=== PATIENT | female | born 1945 | race Caucasian/White ===

== ENCOUNTER → 2020-07-27 | Outpatient (CLI) | payer MEDICARE | LOC: COL.RAD 13:31 | DX: Z01.812 Encounter for preprocedural laboratory examination (principal); S09.90XA Unspecified injury of head, initial encounter; G35 Multiple sclerosis; Z87.828 Personal history of other (healed) physical injury and trauma | CPT/HCPCS: A9585 ==

== ENCOUNTER → 2020-07-27 | Outpatient (CLI) | payer MEDICARE | LOC: COL.RAD 07-14 14:00 | DX: S06.9X0D Unspecified intracranial injury without loss of consciousness, subsequent encounter (principal); R41.3 Other amnesia; Z87.828 Personal history of other (healed) physical injury and trauma ==

== ENCOUNTER 2022-01-29 16:04 | Emergency (ER) | payer MEDICARE, BC ==
[~2022-01-29] VITALS: Ht 165.1 cm; Wt 70.5 kg
[2022-01-29 16:05] VITALS: PULSE 108; TEMP 97.5
[2022-01-29 17:54] LABS: BASO # 0.1 K/mm3 (0.0-0.2); BASO % 1.7 % (0.0-2.0); EOS # 0.1 K/mm3 (0.0-0.7); EOS % 2.1 % (0.0-4.0); GRAN # 2.9 K/mm3 (1.4-6.5); GRAN % 55.3 % (42.2-75.2); HEMATOCRIT 37.6 % (37.0-47.0); HEMOGLOBIN 12.3 g/dl (12.5-16.0); LYMPH # 1.6 K/mm3 (1.2-3.4); LYMPH % 30.8 % (20.0-51.0); MEAN CELL VOLUME 93 fl (80.0-100.0); MEAN CORPUSCULAR HEMOGLOBIN 30 pg (27-31); MEAN CORPUSCULAR HGB CONC 33 g/dl (33.0-37.0); MEAN PLATELET VOLUME 10.4 fl (7.4-10.4); MONO # 0.5 K/mm3 (0.1-0.6); MONO % 9.9 % (1.7-9.3); PLATELET COUNT 248 K/mm3 (130-400); RED BLOOD COUNT 4.06 M/mm3 (4.10-5.30); REDCELL DISTRIBUTION WIDTH-CV 13.9 % (11.5-14.5)
[2022-01-29 18:18] LABS: BILIRUBIN,TOTAL 0.8 mg/dL (0.2-1.2); CREATININE, serum 0.85 mg/dL (0.57-1.11); POTASSIUM 3.9 mmol/L (3.5-4.5); TOTAL PROTEIN 7.3 gm/dL (6.2-8.1)
[2022-01-29 18:55] VITALS: BP 131/79
== END 2022-01-29 18:56 | disposition home or self-care (01) ==
LOC: COL.ER 16:04
PROVIDERS: Emergency Medicine
DX: R42 Dizziness and giddiness (principal); T41.3X5A Adverse effect of local anesthetics, initial encounter
CPT/HCPCS: J0360